=== PATIENT | female | born 1995 | race African-American/Black ===

== ENCOUNTER 2018-11-02 16:41 | Emergency (ER) | payer OTHER ==
[~2018-11-02] VITALS: Ht 162.6 cm; Wt 81.7 kg
[~2018-11-02 16:41] MED LIST: NAPROSYN500 MG PO; ZOFRAN ODT4 MG PO
[2018-11-02 17:18] LABS: URINE BILIRUBIN NEGATIVE (Negative); URINE BLOOD NEGATIVE (Negative); URINE CLARITY CLEAR; URINE COLOR YELLOW; URINE GLUCOSE-RANDOM* NEGATIVE (Negative); URINE KETONES 1+ (Negative); URINE LEUKOCYTES NEGATIVE (Negative); URINE NITRITE NEGATIVE (Negative); URINE PROTEIN (DIPSTICK) NEGATIVE (Negative); URINE SPECIFIC GRAVITY >= 1.030 (1.005-1.035); URINE UROBILINOGEN 0.2 E.U./dl (0.2-1.0)
[2018-11-02 17:51] LABS: BACTERIA 1-9 Few /HPF (None Seen); CASTS None Seen /LPF (None Seen); SQUAMOUS None Seen /LPF (0-3); URINE RBC None Seen /HPF (0-2); URINE WBC None Seen /HPF (0-5)
[2018-11-02 17:52] LABS: CRYSTALS None Seen /LPF (None Seen)
[2018-11-02 19:01] LABS: ABSOLUTE NEUTROPHILS 6.8 thou/uL (1.4-8.2); BASOPHILS 0.9 % (0.0-2.0); EOSINOPHILS 1.7 % (0.0-3.0); HEMATOCRIT 35.7 % (37.0-47.0); MCH 29.4 pg (26.0-34.0); MCHC 33.5 g/dL (28.0-37.0); MCV 87.9 fL (80.0-100.0); MONOCYTES 9.5 % (1.0-8.0); PLATELET COUNT 318 thou/uL (150-400); POLYS 71.9 % (36.0-66.0); RBC 4.07 mil/uL (4.20-5.00); RDW 12.9 % (10.5-14.5); WBC 9.5 thou/uL (4.0-11.0)
[2018-11-02 19:08] LABS: CALCIUM 9.2 mg/dL (8.5-10.1); CREATININE 0.6 mg/dL (0.6-1.0); POTASSIUM 3.6 mmol/L (3.5-5.1)
[2018-11-02 19:14] LABS: TOTAL BILIRUBIN 0.6 mg/dL (<0.1-1.0); TOTAL PROTEIN 8.4 g/dL (6.4-8.2)
[2018-11-02] MEDS ORDERED: IBUPROFEN 800800 M1 PO (20:35)
[2018-11-02] MEDS ORDERED: ULTRAM 50MG TAB50 MG PO (20:35)
[2018-11-02 20:52] VITALS: BP 132/75
== END 2018-11-02 20:54 | disposition home or self-care (01) ==
LOC: ER 16:41
PROVIDERS: Emergency Medicine
DX: N83.291 Other ovarian cyst, right side (principal)

== ENCOUNTER 2020-03-24 20:00 | Emergency (ER) | payer OTHER ==
[~2020-03-24] VITALS: Ht 162.6 cm; Wt 77.1 kg
[~2020-03-24 20:00] MED LIST changes: +IBUPROFEN 800800 M1 PO; +ULTRAM 50MG TAB50 MG PO
[2020-03-24 20:03] VITALS: BP 109/70
== END 2020-03-24 22:23 | disposition home or self-care (01) ==
LOC: ER 20:00
DX: S01.112A Laceration without foreign body of left eyelid and periocular area, initial encounter (principal); W01.198A Fall on same level from slipping, tripping and stumbling with subsequent striking against other object, initial encounter; Y93.89 Activity, other specified; Y92.89 Other specified places as the place of occurrence of the external cause; Y99.8 Other external cause status